=== PATIENT | female | born 2005 ===

== ENCOUNTER 2025-02-06 15:15 | Outpatient (CLI) | payer OTHER, SELFPAY ==
--- NOTE | ~2025-02-06 | MR_ITS ---
MRI of the lumbar spine Clinical History: Spondylosis Technique: Axial T2-weighted images, and sagittal T1-weighted, T2-weighted, and T2 fat-sat images wer e acquired. Findings: There is no fracture or subluxation of the lumbar spine. Vertebral bodies maintain normal h eight and alignment. No bone marrow signal abnormality seen. At L1-L2, L2-L3, L3-L4, L4-L5, there is no disc bulge or herniation. There are mild facet joint degen erative changes at these levels. No spinal canal stenosis or neural foraminal narrowing at these leve ls. At L5-S1, there is minimal disc bulge. There is mild facet arthropathy. No spinal canal stenosis or n eural foraminal narrowing. Paravertebral soft tissues are unremarkable. Impression: Minimal degenerative change at L5-S1. Reviewed, dictated and finalized at [facility]. Impression: Minimal degenerative change at L5-S1.
== END 2025-02-06 15:16 | disposition home or self-care (01) ==
LOC: GOSHIMG 15:16
PROVIDERS: PCP Orthopaedic Surgery; Visit Provider Orthopaedic Surgery
DX: M54.16 Radiculopathy, lumbar region (principal)
CPT/HCPCS: 72148